=== PATIENT | male | born 1990 | race Caucasian/White ===

== ENCOUNTER 2016-11-03 19:56 | Emergency (ER) | payer OTHER ==
[~2016-11-03] VITALS: Ht 177.8 cm; Wt 72.6 kg
[~2016-11-03 19:56] MED LIST: BACTRIM DS 8001 TAB PO; FIORICET 50-301 EACH PO; ULTRAM50 M1 PO
[2016-11-03] MEDS ORDERED: SUBOXONE 8 MG-1 EACH SL (21:08)
[2016-11-03] MEDS ORDERED: ADVIL LIQUI-GE200 M1 PO (21:09)
--- NOTE | 2016-11-03 21:37 | ED PSY CRISIS COLLATERAL NOTE ---
Collateral Note Collateral Note Family/Inform/Guerline Contacts: This clinician spoke with mother José Eaton who reports the patient loss his job (3) months ago, 3 year old child and unable to pay child support, reports the patient has been depressed. She reports the patient lives with father and the mother. The mother José Eaton [phone] reports was walking around the house making suicidal statements. She reports the patient said" better off if I was ", and "Don't worry you can live without me". The mother was concerned of the patient mental status and called 911. The patient was BIBA and placed on a Police Emergency Examination Request. (CINTIA MORAN,SHRAVAN)
--- NOTE | 2016-11-03 22:43 | ED PSYCHIATRIC COMPLAINT ---
History of Present Illness General Chief Complaint: Psychiatric Related Complaint Stated Complaint: PHU INGRAM Source: patient, old records Exam Limitations: no limitations Vital Signs & Intake/Output Vital Signs & Intake/Output Vital Signs Date Time Temp Pulse Resp B/P B/P Pulse O2 O2 Flow FiO2 Mean Ox Delivery Rate 11/04 2047 96.8 77 16 129/69 99 Room Air Allergies Coded Allergies: No Known Allergies (03/19/16) Reconcile Medications Buprenorphine HCl/Naloxone HCl (Suboxone 8 MG-2 MG Sl Film) 8 MG-2 MG FILM 3 STR SL DAILY MENTAL HEALTH (Reported) Butalb/Acetaminophen/Caffeine (Fioricet 50-300-40 MG Capsule) 50 MG-300 MG-40 MG CAPSULE 1 TAB PO Q6HR PRN HEADACHE Ibuprofen (Advil Liqui-Gels) 200 MG CAPSULE 1 CAP PO PRN PAIN (Reported) Tramadol HCl (Ultram) 50 MG TABLET 1 TAB PO BIDP PRN HEADACHE Triage Note: PT BIBA ON A PEER. PER EMS AND PD PT GOT INTO ARGUMENT WITH MOTHER AND REPORTED "YOU'D BE BETTER OFF WITHOUT ME. I'D BE BETTER OFF ." UPON ARRIVAL PT DENIES SI/HI. STATES ITS AN "ONGOING ARGUMENT WITH MOTHER." PT IS CALM AND COOPERATIVE. SECURITY AT BEDSIDE. DENIES DRUGS/ALCOHOL. Triage Nurses Notes Reviewed? yes HPI: PATIENT PRESENTS FOR EVALUATION OF POSSIBLE SUICIDE IDEATION. Patient STATES THAT HE WAS IN AN ALTERCATION WITH HIS FAMILY PRIOR TO ARRIVAL. He STATES THIS IS ATYPICAL ACTIVITY FOR HIS FAMILY. He STATES HIS MOTHER CALLED THE POLICE, BUT HE IS NOT SURE WHY. They HAVE HAD ALTERCATIONS LIKE THIS IN THE PAST. According TO THE POLICE EMERGENCY EVALUATION REQUEST, THE PATIENT STATED THAT HE WOULD BE BETTER OFF AND THAT THEY WOULD BE BETTER OFF WITHOUT HIM. THE PATIENT DENIES SUICIDE INTENT. He STATES THAT HE HAS BEEN GATHERING HIS BELONGINGS AND PUTTING THEM IN HIS CAR FOR A PLANNED MOVE OUTSIDE OF THE HOME. Past History Travel History Traveled to [place] past 21 day No Medical History Any Pertinent Medical History? 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 No Review of Systems Review of Systems Constitutional: Reports: no symptoms. EENTM: Reports: no symptoms. Respiratory: Reports: no symptoms. Cardiovascular: Reports: no symptoms. GI: Reports: no symptoms. Genitourinary: Reports: no symptoms. Musculoskeletal: Reports: no symptoms. Skin: Reports: no symptoms. Neurological/Psychological: Reports: see HPI. Hematologic/Endocrine: Reports: no symptoms. Immunologic/Allergic: Reports: no symptoms. All Other Systems: Reviewed and Negative Physical Exam Physical Exam General Appearance: SEE BELOW Neurological/Psychiatric: SEE BELOW Comments: General: Alert, calm, cooperative Head: Normocephalic, atraumatic Eyes: Normal inspection, no nystagmus, EOMI Ears: Normal inspection Nose: Normal inspection Throat: Moist mucosa Neck: Supple, no goiter Heart: Regular rate and rhythm, no murmurs rubs or gallops Lungs: Clear to auscultation bilaterally with good air entry Abdomen: Soft nontender nondistended, normal bowel sounds Chest: Nontender Extremities: Normal range of motion grossly, no tremors present, no cyanosis clubbing or edema of the upper extremities Neurologic: cranial nerves II through XII grossly intact, speech clear, gait normal Psychiatric: No apparent delusions or hallucinations, no pressured speech or thought blocking SAD PERSONS Done? deferred to crisis Progress Differential Diagnosis: DEPRESSION,SI,PERSONALITY DISORDER Plan of Care: Orders Procedure Date/time Status Continuous Observation Monitor 11/04 2231 Active URINE DRUG SCREEN FOR ER ONLY 11/03 2056 Complete ETHANOL 11/03 2056 Complete ED CRISIS PSYCH CONSULT 11/03 2056 Active Current Medications Sig/Reagan Start time Last Medication Dose Stop Time Status Admin Ibuprofen 800 MG ONCE ONE 11/03 2244 AC (Motrin) 11/03 2245 Penicillin V 500 MG ONCE ONE 11/03 2244 AC Potassium 11/03 2245 (Pen V K 250MG. Tablet) Laboratory Tests 11/03/16 2203: Urine Opiates Screen < 100.00, Methadone Screen < 40, Barbiturate Screen 706 H, Ur Phencyclidine Scrn < 6.00, Amphetamines Screen < 100, U Benzodiazepines Scrn > 800 H, Urine Cocaine Screen < 50, Urine Cannabis Screen > 80.00 H 11/03/16 2123: Serum Alcohol < 10.0 Comments: pt signed out to dr hunt at shift [facility]. Departure Departure Disposition: LEFT AGAINST MEDICAL ADVICE Condition: Guarded Clinical Impression Primary Impression: Psychiatric disorder Referrals: PATIENT HAS NO PRIMARY CARE DR (PCP/Family) Departure Forms: Customer Survey General Discharge Information
[2016-11-03 22:44] VITALS: BP 138/81
--- NOTE | 2016-11-05 22:13 | ED PSY CRISIS COLLATERAL NOTE ---
Collateral Note Collateral Note Family/Inform/Guerline Contacts: educational speech language clinician consulted with Dr. Jacobs at 930pm. The charge nurse Neo received a phone call from José Eaton on the evening of 11/05/16; Ms. Eaton called asking for her son Saman Eaton's personal belongings that was left here in [facility] after he eloped on 11/03/16. Neo stated that the pt Saman returned on 11/04/16 and obtained his valuables (cell phone and wallet), however he did not get his personal belongings ( clothing). Also, Neo questioned whether the pt should be brought back to the ED for a Crisis Evaluation since he was brought in the ED on a PEER and he was on 72 hours hold. educational speech language clinician contacted Ms. José Eaton and asked her if she still had concerns about her son's mental health and whether she felt she could get him to return to the ED for an evaluation. Her response "That's not gonna happen". Ms. Eaton then inquired about her son's clothing items and she identified them as such (1) Blue shorts (1) Blue Hoody (1) Black Nike Airmax Sneakers (1) T-Shirt and a Black wrist ban. Dr. Jacobs's recommendation An RL should be written on the missing personal items. Discussion for Safety Huddle on 11/06/16 Document the conversation with Ms. Eaton after talking to her about whether she is still concerned about her son's state of mind and can she bring him in for an evaluation?
== END 2016-11-03 23:30 | disposition left against medical advice (07) ==
LOC: ERH 19:56
DX: F99 Mental disorder, not otherwise specified (principal); R45.851 Suicidal ideations; F10.10 Alcohol abuse, uncomplicated
CPT/HCPCS: 80307; G0480; J1885